=== PATIENT | male | born 1955 | race Caucasian/White ===

== ENCOUNTER 2020-12-17 19:39 | Emergency (ER) | payer OTHER ==
[~2020-12-17] VITALS: Ht 183 cm; Wt 94.6 kg
[2020-12-17 19:50] VITALS: BP 166/75
--- NOTE | 2020-12-17 20:00 | ED Lower Extremity ---
General Stated Complaint: LT FOOT PAIN/SWELLING Source: patient History of Present Illness Date Seen by Provider: Dec 17, 2020 Time Seen by Provider: 19:40 Initial Comments 65-year-old male presenting with complaint of pain and swelling to the left ankl e. He states this started yesterday and he does not remember any specific injury. He normally is very active and does a lot of walking. He thinks he may have slipped and had some mild injury to the ankle last week. However he has not had any swelling or pain until today. He has improved swelling by the time he woke up this morning but it was swelling about the end of the day. He denies any pain in his calf. No redness or signs of a bite. No increased warmth to the area. Onset: yesterday Severity: mild Pain/Injury Location: left ankle Method of Injury: unknown Allergies and Home Medications Allergies Coded Allergies: No Known Drug Allergies (Unverified , 12/17/20) Patient Home Medication List Home Medication List Reviewed: Yes Review of Systems Constitutional: no symptoms reported EENTM: no symptoms reported Respiratory: no symptoms reported Cardiovascular: no symptoms reported Gastrointestinal: no symptoms reported Genitourinary: no symptoms reported Musculoskeletal: see HPI Skin: see HPI Psychiatric/Neurological: Denies Numbness, Denies Paresthesia Physical Exam Vital Signs Vital Signs - First Documented 12/17/20 19:50 Temp 36.3 Pulse 98 Resp 18 B/P (MAP) 166/75 (105) Pulse Ox 98 O2 Delivery Room Air Capillary Refill : Height, Weight, BMI Height: '" Weight: lbs. oz. kg; BMI Method: General Appearance: WD/WN, no apparent distress Cardiovascular: normal peripheral pulses Ankles: left ankle swelling (mild non pitting swelling to Left ankle. mild tenderness to palpation and ROM. No calf tenderness) Neurologic/Tendon: normal sensation, normal motor functions, normal tendon functions Neurologic/Psychiatric: alert, normal mood/affect, oriented x 3 Skin: normal color, warm/dry Progress/Results/Core Measures Results/Orders My Orders Orders - JESSICA MUSA MD Sigifredo Bandage (12/17/20 19:58) Vital Signs/I&O 12/17/20 19:50 Temp 36.3 Pulse 98 Resp 18 B/P (MAP) 166/75 (105) Pulse Ox 98 O2 Delivery Room Air Progress Progress Note : Progress Note Discussed with patient doing x-rays and imaging but he declined. Reviewed findings that would go along with gout as well as DVT. He had no symptoms of either. Counseled on follow-up and return precautions. Patient was reassured and stated that he would follow-up with his primary provider rather than have imaging or other testing done here. Departure Impression Primary Impression: Left ankle swelling Disposition: HOME, SELF-CARE Condition: Stable Departure-Patient Inst. Decision time for Depature: 19:59 Referrals: SELFDOMENICA MD (PCP/Family) Primary Care Physician Patient Instructions: Swollen Joints (DC) Add. Discharge Instructions: Use sigifredo bandage for compression to help with swelling and pain. You could try ice 20-30 minutes every few hours if needed for pain/swelling. If you have redness or pain/swelling that goes up to the calf then get rechecked sooner, otherwise check with primary provider for continued concerns. JESSICA MUSA MD Dec 17, 2020 20:00
== END 2020-12-17 20:09 | disposition home or self-care (01) ==
LOC: ER FS 19:40
DX: M25.472 Effusion, left ankle (principal)
CPT/HCPCS: 99283

== ENCOUNTER → 2023-04-20 | Outpatient (CLI) | payer BC ==
--- NOTE | 2023-04-20 13:49 | Diagnostic Imaging Report ---
INDICATION: BLOOD IN URINE COMPARISON: None FINDINGS: Single supine radiographic view of the abdomen was obtained and demonstrates nondistended loops of small bowel. There is no large collection of free peritoneal air. Moderate air and stool are seen scattered throughout the colon. Punctate extraosseous calcifications noted projecting over the inferior pole of the left renal shadow. It measures 3 mm in diameter and is suspicious for nephrolithiasis. No unexpected radiopaque foreign bodies are seen. Bony structures show no gross acute abnormalities. IMPRESSION: 1. Nonobstructed small bowel gas pattern. 2. Moderate colonic air and stool. Please correlate for constipation 3. Probable left renal calculus. Dictated by: Dictated on workstation # [id number]
== END ==
LOC: RAD FS 12:50
PROVIDERS: ATTEND Urology
DX: R31.9 Hematuria, unspecified (principal); K59.00 Constipation, unspecified
CPT/HCPCS: 74018